=== PATIENT | female | born 1975 | race Two or more races ===

== ENCOUNTER 2024-11-15 19:07 | Emergency (ER) | payer BC, OTHER ==
[~2024-11-15] VITALS: Ht 157.5 cm; Wt 70.8 kg
[2024-11-15] MEDS ORDERED: KETOROLAC TROMETHAMINE 15 MG/ML VIAL ONE (20:37)
[2024-11-15] MEDS: KETOROLAC TROMETHAMINE 15 MG/ML VIAL IM ONE (20:40)
[2024-11-15] MEDS ORDERED: IBUP-1490 PO (21:22)
[2024-11-15 22:07] VITALS: BP 141/87; TEMP 98.5; O2SAT 99
== END 2024-11-15 22:08 | disposition home or self-care (01) ==
LOC: ER 19:09
DX: M54.50 Low back pain, unspecified (principal); I10 Essential (primary) hypertension; Z88.0 Allergy status to penicillin; Z98.1 Arthrodesis status; V43.62XA Car passenger injured in collision with other type car in traffic accident, initial encounter; Y93.89 Activity, other specified; Y92.89 Other specified places as the place of occurrence of the external cause; Y99.8 Other external cause status
CPT/HCPCS: 99285; 72131; 96372; J1885